=== PATIENT | female | born 1990 | race Caucasian/White ===

== ENCOUNTER 2022-10-22 09:09 | Emergency (ER) | payer MEDICAID ==
[~2022-10-22] VITALS: Ht 154.9 cm; Wt 86.2 kg
[2022-10-22 09:26] VITALS: BP 126/77; PULSE 74; RESP 18; TEMP 98.3; O2SAT 99
[2022-10-22] MEDS ORDERED: diphenhydrAMINE 50 MG/ML VIAL IM ONE (12:20)
[2022-10-22] MEDS ORDERED: DEXAMETHASONE 10 MG/ML VIAL IM ONE (12:20)
[2022-10-22] MEDS ORDERED: DIPH25TA53 PO (12:22)
[2022-10-22] MEDS ORDERED: HYD1C TP (12:22)
== END 2022-10-22 12:35 | disposition home or self-care (01) ==
LOC: MED 09:09
DX: T63.441A Toxic effect of venom of bees, accidental (unintentional), initial encounter (principal); Z79.899 Other long term (current) drug therapy; Y92.89 Other specified places as the place of occurrence of the external cause
CPT/HCPCS: 96374; 96375; 99284; J1100; J1200; 96372